=== PATIENT | female | born 1985 | race Hispanic/Latino ===

== ENCOUNTER 2019-02-03 21:38 | Inpatient (IN) | payer MEDICAID ==
[2019-02-03] MEDS ORDERED: Lorazepam 2 MG/ML VIAL ONE (21:51)
[2019-02-03 21:56] LABS: #Basophils 0.1 thou/uL (0.0-0.2); #Eosinphils 0.1 thou/uL (0.0-0.7); #Lymphocytes 3.1 thou/uL (1.20-3.40); #Monocytes 0.4 thou/uL (0.11-0.59); #Neutrophils 4.3 thou/uL (1.40-6.50); %Basophils 0.7 % (0.0-1.0); %Eosinophils 1.7 % (0.0-10.0); %Lymphocytes 38.6 % (21.0-51.0); %Monocytes 5.4 % (0.0-10.0); %Neutrophils 53.6 % (42.0-75.0); Hemoglobin 11.7 g/dL (12.0-16.0); Mean Corpuscular HGB CONC 33.7 g/dL (32.0-36.0); Mean Corpuscular Hemoglobin 30.4 pg (27.0-31.0); Mean Corpuscular Volume 90.2 fL (78.0-98.0); Mean Platelet Volume 8.3 fL (7.4-10.4); Platelet Count 259 thou/uL (130-400); RBC Distribution Width 12.5 % (11.5-14.5); Red Blood Cell (RBC) Count 3.84 mill/uL (4.20-5.40)
--- NOTE | 2019-02-03 21:59 | RAD ---
Portable chest: HISTORY: Postintubation COMPARISON: 08/14/2015 FINDINGS: Lung crain are clear. Heart and mediastinum appear unremarkable. Vascularity is normal. Visualized osseous structures unremarkable. ET tube and NG tube appear adequately positioned. IMPRESSION: No acute finding
[2019-02-03 22:03] LABS: BHCG - Serum Negative (NEGATIVE); Pregs Control Background? CLEAR/WHITE (CLR/WHITE); Pregs Control Bar Appear? YES (CONTROL BAR)
[2019-02-03 22:21] LABS: Bilirubin Negative (Negative); Blood, Urine Negative (Negative); Clarity Clear (Clear); Glucose, Urine (Dipstick) Normal (Negative); Leukocyte Negative Leu/uL (Negative); Nitrite Negative (Negative); Protein, Urine (Dipstick) Negative (Neg-Trace); Urobilinogen Normal mg/dL (Less than 2)
[2019-02-03 22:21] LABS: ALT (SGPT) 12 U/L (8-55); AST (SGOT) 14 U/L (5-34); Acetaminophen Less than 6.0 mcg/mL (10.0-30.0); Albumin 3.2 g/dL (3.5-5.0); Alcohol 249 mg/dL (Less than 10); Alkaline Phosphatase 74 U/L (40-110); Anion Gap 12 mmol/L (10-20); BUN (Urea Nitrogen) 4 mg/dL (7.0-18.7); Bilirubin, Total Less than 0.2 mg/dL (0.2-1.2); CK (CPK) 53 U/L (29-168); Calc. Creatinine Clearance 0 mL/min (70-130); Calcium 7.5 mg/dL (7.8-10.44); Carbon Dioxide 19 mmol/L (22-29); Chloride 113 mmol/L (98-107); Estimated GFR-MDRD Greater than 90; Globulin 2.3 g/dL (2.4-3.5); Glucose 147 mg/dL (70-105); Potassium 3.3 mmol/L (3.5-5.1); Protein, Total 5.5 g/dL (6.0-8.3); Salicylate Less than 8.0 mg/dL (15.0-30.0); Sodium 141 mmol/L (136-145)
[2019-02-03 22:25] LABS: Actual Bicarbonate (HCO3a) 16.2 mEq/L (22-28); Analyzer IN Cardio ER; CO2 Tension 26.1 mmHg (35.0-45.0); Calcium, Ionized 1.09 mmol/L (1.12-1.30); Carboxyhemoglobin (COHb) 5.6 gm% (0.0-3.0); Hemoglobin (Hb) 11.3 g/dL (12.0-16.0); O2 Tension (PaO2) 68.3 mmHg (80.0-100.0); Potassium - ABG Lab 3.31 mmol/L (3.70-5.30); pH, Arterial 7.41 (7.35-7.45)
[2019-02-03 22:29] LABS: Medtox Reader # READER 4
[2019-02-03 22:30] LABS: Amphetamine Not Detected (NotDetected); Barbiturates Screen Not Detected (NotDetected); Benzodiazepine Screen Not Detected (NotDetected); Cocaine Metabolite Screen Not Detected (NotDetected); Medtox Control Line Valid? VALID (VALID); Methadone Not Detected (NotDetected); Methamphetamine Not Detected (NotDetected); Opiate Screen Not Detected (NotDetected); Oxycodone Screen Not Detected (NotDetected); Phencyclidine (PCP) Not Detected (NotDetected); THC/Cannabinoid Screen Not Detected (NotDetected); Tricyclic Screen Detected (NotDetected)
[2019-02-03 22:46] LABS: Puncture Site RRA
[2019-02-03 22:47] LABS: ALV-art Gradient 184.275 (0-20)
[2019-02-03] MEDS ORDERED: Magnesium 2 GM/50 ML BAG (IN WATER) ONE (22:49)
[2019-02-03] MEDS ORDERED: NS 0.9% w/ 40 MEQ KCL 1,000 ML IV SCH (23:00)
[2019-02-04] MEDS ORDERED: Ondansetron ODT 4 MG TAB PO PRN (00:06)
[2019-02-04] MEDS ORDERED: Ondansetron PF 4 MG/2 ML Vial IVP PRN (00:06)
[2019-02-04] MEDS ORDERED: Ventilator Sedation Protocol 1 EACH FS ONE (00:24)
[2019-02-04] MEDS ORDERED: Propofol 1,000 MG/100 ML VIAL IV PRN (00:25)
[2019-02-04] MEDS ORDERED: fentaNYL Citrate/PF 2,000 MCG in Sodium Chloride 0.9% 60 ML IV SCH (00:25)
[2019-02-04] MEDS ORDERED: Morphine 2 MG/ML SYRINGE SLOW IVP PRN (00:25)
[2019-02-04] MEDS ORDERED: Fentanyl BOLUS 250 ML IVPB PRN (00:25)
[2019-02-04] MEDS ORDERED: Propofol BOLUS 1,000 MG/100 ML VIAL IV PRN (00:25)
[2019-02-04] MEDS ORDERED: Lorazepam 2 MG/ML VIAL SLOW IVP PRN (00:25)
[2019-02-04] MEDS ORDERED: DISCONTINUE PREVIOUS NARCOTIC PAIN MEDICATIONS AND BENZODIAZEPINES FS SCH (00:25)
[2019-02-04 02:06] LABS: Acetaminophen Less than 6.0 mcg/mL (10.0-30.0)
[2019-02-04 02:59] LABS: Anion Gap 12 mmol/L (10-20); BUN (Urea Nitrogen) 4 mg/dL (7.0-18.7); Calc. Creatinine Clearance 180 mL/min (70-130); Calcium 7.8 mg/dL (7.8-10.44); Carbon Dioxide 21 mmol/L (22-29); Chloride 112 mmol/L (98-107); Estimated GFR-MDRD Greater than 90; Glucose 147 mg/dL (70-105); Potassium 3.4 mmol/L (3.5-5.1); Salicylate Less than 8.0 mg/dL (15.0-30.0); Sodium 142 mmol/L (136-145)
[2019-02-04] MEDS ORDERED: Sodium Chloride 0.9% 1,000 ML IV SCH (04:30)
[2019-02-04 05:37] LABS: #Eosinphils 0.1 thou/uL (0.0-0.7); #Lymphocytes 3.6 thou/uL (1.20-3.40); #Monocytes 0.8 thou/uL (0.11-0.59); %Basophils 0.3 % (0.0-1.0); %Eosinophils 0.8 % (0.0-10.0); %Lymphocytes 24.9 % (21.0-51.0); %Monocytes 5.4 % (0.0-10.0); %Neutrophils 68.5 % (42.0-75.0); Hemoglobin 12.1 g/dL (12.0-16.0); Mean Corpuscular HGB CONC 33.1 g/dL (32.0-36.0); Mean Corpuscular Hemoglobin 29.8 pg (27.0-31.0); Mean Platelet Volume 8.6 fL (7.4-10.4); Platelet Count 275 thou/uL (130-400); RBC Distribution Width 12.6 % (11.5-14.5); Red Blood Cell (RBC) Count 4.07 mill/uL (4.20-5.40); White Blood Cell (WBC) Count 14.6 thou/uL (4.8-10.8)
--- NOTE | 2019-02-04 06:22 | HP ---
PRIMARY CARE DOCTOR: The patient has no PCP. CODE STATUS: Full code. TIME OF EVALUATION: 12 a.m. CHIEF COMPLAINT: Patient on an overdose for suicidal attempt. HISTORY OF PRESENT ILLNESS: This is a 34-year-old female patient, we are unable to obtain family history. The patient was brought into the hospital by EMS. The patient had a suicidal attempt. The patient had overdosed on several medications that she got from her home medications and that include prazosin, hydroxyzine, quetiapine, venlafaxine, benztropine, unclear the amount that the patient ingested and also EMS has reported that she had a vomit with multiple pills when she was being evaluated. The patient became unresponsive, unable to protect the airway, got intubated and is going to be monitored in ICU for that reason. Psych will need to see the patient once the patient is alert. Symptoms were present since presentation after the EMS called. The patient is over-sedated. Symptoms are severe, triggered by overdose. No alleviating factors at the time of medical treatment. REVIEW OF SYSTEMS: Unable to obtain, the patient is over-sedated. PAST MEDICAL HISTORY: Unable to obtain since the patient is intubated and over-sedated due to the overdose. PAST SURGICAL HISTORY: Unable to obtain since the patient is intubated and over-sedated due to the overdose. PAST PSYCHIATRIC HISTORY: Unable to obtain since the patient is intubated and over-sedated due to the overdose. FAMILY HISTORY: Unable to obtain since the patient is intubated and over-sedated due to the overdose. SOCIAL HISTORY: Unable to obtain since the patient is intubated and over-sedated due to the overdose. KNOWN ALLERGIES: Unable to obtain and verify. REPORTED MEDICATIONS: 1. Hydroxyzine. 2. Benztropine. 3. Venlafaxine. 4. Prazosin. 5. Quetiapine. IMAGING STUDIES: EKG was reviewed. The patient has sinus tachycardia at the rate of [address]-T wave abnormalities. QT corrected is 149. The second one was reviewed, the QT corrected was 476. Third one shows the same with tachycardia at 116, and QT corrected 489. Chest x-ray was reviewed. The patient has no acute findings. LABORATORY DATA: Reviewed. The patient has a white count 8.0, hemoglobin 11.7, platelet count 259. Blood gas; the patient has a pH 7.41, pCO2 of 26.1, and pO2 of 68.3. SIMV; respiratory rate 22, inspired oxygen 40, tidal volume 450, pressure support of 10. Chemistry; the patient presented with sodium 141, chloride 113, carbon dioxide 19, anion gap 12, creatinine 0.5, glucose 147, calcium 7.5, magnesium 1.9, total bilirubin less than 0.2. LFTs were negative. Toxicology and tricyclics were detected. The rest was negative. Tylenol was negative. Plasma alcohol 249. PHYSICAL EXAMINATION: VITAL SIGNS: On presentation, heart rate 128, respiratory rate was 22, oxygen saturation was 100% on the vent. GENERAL APPEARANCE: The patient is over-sedated, intubated. HEENT: Eyes, normal conjunctivae. Moist oral mucosa. Anicteric. No JVD. The patient has pinpoint pupils. RESPIRATORY: Bilateral air entry. No rales. No wheezes. Symmetric expansion. CARDIOVASCULAR: The patient has tachycardia. Regular rhythm. No murmurs. No gallop. No edema. ABDOMEN: Soft. Normal bowel sounds. MUSCULOSKELETAL: Baseline range of motion and strength. SKIN: Warm, intact. No pallor. No rash. No redness. Capillary refill seems to be intact. NEUROLOGIC: No evidence of any new focal weakness. At this point, the patient is oversedated and is very difficult to examine. PSYCH: Not examined due to patient intubated. ASSESSMENT AND PLAN: The patient will be placed in the hospital with following medical problems. 1. Acute encephalopathy secondary to overdose of multiple medications as a suicidal attempt. The patient got severe central nervous system depression, got intubated for airway protection. We will continue to monitor in ICU. We will give hydration. The patient will need assessment by Psych once more stable. 2. The patient seems to have a history of psych disease. This will need to be monitored and as soon as the patient's mentation is better, reconciliation of home medication needs to be done since the patient might want withdrawal of this medications once overdose is gone. 3. Alcohol intoxication. The patient will need to be advised to stop drinking. 4. Deep venous thrombosis prophylaxis. Job ID: [id number]
[2019-02-04 08:22] LABS: Actual Bicarbonate (HCO3a) 18.9 mEq/L (22-28); Base Excess (BEa) -5.1 mEq/L (-2.0 to +3.0); CO2 Tension 32.3 mmHg (35.0-45.0); Calcium, Ionized 1.15 mmol/L (1.12-1.30); Carboxyhemoglobin (COHb) 0.7 gm% (0.0-3.0); Hemoglobin (Hb) 12.4 g/dL (12.0-16.0); O2 Tension (PaO2) 129.3 mmHg (80.0-100.0); Potassium - ABG Lab 3.76 mmol/L (3.70-5.30); pH, Arterial 7.39 (7.35-7.45)
[2019-02-04 08:23] LABS: ALV-art Gradient 44.225 (0-20); Puncture Site RRA
[2019-02-04] MEDS: Enoxaparin Sodium 40 MG/0.4 ML SYRINGE SC SCH (09:00)
[2019-02-04] MEDS: Famotidine/PF 20 mg/2ml Vial SLOW IVP SCH ×2 (09:00→21:01)
[2019-02-04] MEDS: Lactated Ringer's 1,000 ML IV SCH ×3 (14:26→23:17)
--- NOTE | 2019-02-04 19:36 | CON ---
DATE OF CONSULTATION: 02/04/2019 HISTORY OF PRESENT ILLNESS: Ms. Abernathy is 34-year-old female, who took multiple prescription drugs. She was admitted to the critical care unit after being intubated. When I saw her this morning, she was awake and following commands. Medical records have been reviewed and she has never been hospitalized here before. She has no past medical history. FAMILY HISTORY: Unknown. SOCIAL HISTORY: Unknown. REVIEW OF SYSTEMS: Not obtainable. PHYSICAL EXAMINATION: GENERAL: She is intubated. She moved all extremities. VITAL SIGNS: She is afebrile. Heart rate is in the 90s, she is in sinus rhythm. Respiratory rate is in the teens, oximetry is 100%. Blood pressure is in the 120s to 130s. HEAD AND NECK: Unremarkable. LUNGS: Clear. HEART: Regular rhythm. S1 and S2 are normal. ABDOMEN: Soft and nontender. EXTREMITIES: Without clubbing, cyanosis, or edema. LABORATORY DATA: Drug screen was positive for tricyclics. Alcohol was 249. White count 14.6, hemoglobin 12.1, platelets 275. Electrolytes are unremarkable except for mild hyperchloremic acidosis. IMPRESSION: Alcohol intoxication with multiple drug ingestion, now awake. I felt she was a candidate for extubation. She met criteria for weaning and extubation was done successfully. She is to be observed several hours and if she is stable, move her out of the critical care unit to a medical bed. Critical care time is 35 minutes. Job ID: [id number] MTDD
[2019-02-05 05:43] LABS: #Eosinphils 0.2 thou/uL (0.0-0.7); #Monocytes 0.6 thou/uL (0.11-0.59); #Neutrophils 10.1 thou/uL (1.40-6.50); %Basophils 0.3 % (0.0-1.0); %Eosinophils 1.5 % (0.0-10.0); %Lymphocytes 21.7 % (21.0-51.0); %Monocytes 4.2 % (0.0-10.0); %Neutrophils 72.3 % (42.0-75.0); Hemoglobin 11.9 g/dL (12.0-16.0); Mean Corpuscular HGB CONC 33.6 g/dL (32.0-36.0); Mean Corpuscular Hemoglobin 29.9 pg (27.0-31.0); Mean Corpuscular Volume 88.9 fL (78.0-98.0); Mean Platelet Volume 8.9 fL (7.4-10.4); Platelet Count 281 thou/uL (130-400); RBC Distribution Width 12.4 % (11.5-14.5); Red Blood Cell (RBC) Count 3.99 mill/uL (4.20-5.40)
[2019-02-05 06:03] LABS: ALT (SGPT) 11 U/L (8-55); AST (SGOT) 8 U/L (5-34); Albumin 3.3 g/dL (3.5-5.0); Alkaline Phosphatase 90 U/L (40-110); Anion Gap 10 mmol/L (10-20); BUN (Urea Nitrogen) 5 mg/dL (7.0-18.7); Bilirubin, Total 0.7 mg/dL (0.2-1.2); Calc. Creatinine Clearance 183 mL/min (70-130); Calcium 8.7 mg/dL (7.8-10.44); Carbon Dioxide 24 mmol/L (22-29); Chloride 108 mmol/L (98-107); Estimated GFR-MDRD Greater than 90; Globulin 2.6 g/dL (2.4-3.5); Glucose 96 mg/dL (70-105); Potassium 3.8 mmol/L (3.5-5.1); Protein, Total 5.9 g/dL (6.0-8.3); Sodium 138 mmol/L (136-145)
[2019-02-05] MEDS: Famotidine/PF 20 mg/2ml Vial SLOW IVP SCH ×2 (10:05→20:22)
[2019-02-05] MEDS: Enoxaparin Sodium 40 MG/0.4 ML SYRINGE SC SCH (10:06)
[2019-02-05] MEDS: Lactated Ringer's 1,000 ML IV SCH (10:07)
--- NOTE | 2019-02-05 12:30 | PDOC.HOSPP ---
- Subjective Encounter Date: 02/05/19 Encounter Time: 09:53 Subjective: Admitted after suicide attempt by intentional overdose on several medications associated with acute toxic encephalopathy with [employer] depression requiring intubation for airway protection. Extubated with improvement of mental status. No new problem. Denied fever, nausea and vomiting. - Objective Vital Signs & Weight: Vital Signs (12 hours) Temp Pulse Resp BP Pulse Ox 02/05/19 11:50 99.2 F 110 H 18 137/77 97 02/05/19 07:45 98.4 F 106 H 16 143/73 H 96 02/05/19 03:14 99 F 100 16 123/80 92 L Weight Admit Weight 2.967 oz Weight 175 lb 14.4 oz Most Recent Monitor Data Heart Rate from ECG 103 NIBP 122/78 NIBP BP-Mean 92 Respiration from ECG 15 SpO2 100 I&O: 02/04/19 02/05/19 02/06/19 06:59 06:59 06:59 Intake Total 932 2484 Output Total 635 2625 Balance 297 -141 Result Diagrams: 02/05/19 05:12 02/05/19 05:12 Additional Labs: Accuchecks 02/04/19 16:53 POC Glucose 104 Hospitalist ROS - Medication Medications: Active Medications Generic Name Dose Route Start Last Admin Trade Name Freq PRN Reason Stop Dose Admin Enoxaparin Sodium 40 mg 02/04/19 09:00 02/05/19 10:06 Lovenox SC 40 mg 0900 CARY Administration Famotidine 20 mg 02/04/19 09:00 02/05/19 10:05 Pepcid SLOW IVP 20 mg BID CARY Administration Sodium Chloride 10 ml 02/04/19 09:00 02/05/19 10:06 Flush - Normal Saline IVF 10 ml Q12HR CARY Administration - Exam General Appearance: awake alert Eye: anicteric sclera ENT: normocephalic atraumatic Neck: symmetric, no JVD Heart: RRR Respiratory: no wheezes, no rales, no ronchi, normal chest expansion Respiratory - other findings: fair air entry with few transmitted sound Gastrointestinal: soft, non-tender, non-distended, normal bowel sounds Extremities: no edema Neurological: cranial nerve grossly intact, no focal deficits Psychiatric: A&O x 3, flat affect Hosp A/P (1) Toxic metabolic encephalopathy Code(s): G92 - TOXIC ENCEPHALOPATHY Status: Acute (2) Suicide attempt Status: Acute (3) Intentional overdose of drug in tablet form Code(s): T50.902A - POISONING BY UNSP DRUG/MEDS/BIOL SUBST, SELF-HARM, INIT Status: Acute (4) Respiratory failure requiring intubation Code(s): J96.90 - RESPIRATORY FAILURE, UNSP, UNSP W HYPOXIA OR HYPERCAPNIA Status: Acute (5) Metabolic acidosis Code(s): E87.2 - ACIDOSIS Status: Acute (6) Depression Code(s): F32.9 - MAJOR DEPRESSIVE DISORDER, SINGLE EPISODE, UNSPECIFIED Status : Acute - Plan [place] oral intake. DC IVF Antiemetic as needed Consult [facility] Suicide precaution to continue.
[2019-02-05] MEDS: Acetaminophen 325 MG TAB PO PRN (21:03)
[2019-02-06] MEDS: Famotidine/PF 20 mg/2ml Vial SLOW IVP SCH ×2 (08:37→21:24)
[2019-02-06] MEDS: Enoxaparin Sodium 40 MG/0.4 ML SYRINGE SC SCH (08:38)
--- NOTE | 2019-02-06 11:26 | PDOC.HOSPP ---
- Subjective Encounter Date: 02/06/19 Encounter Time: 11:20 Subjective: f/u after SI, intentional OD initially requiring [facility] ventilation for airway protection. UDS with Tricyclics and ETOH. Awaiting bed opening at [facility]. - Objective Vital Signs & Weight: Vital Signs (12 hours) Temp Pulse Resp BP Pulse Ox 02/06/19 07:12 98.6 F 85 18 117/71 96 02/06/19 04:00 98.3 F 87 18 112/67 95 Weight Admit Weight 2.967 oz Weight 175 lb 14.4 oz Most Recent Monitor Data Heart Rate from ECG 103 NIBP 122/78 NIBP BP-Mean 92 Respiration from ECG 15 SpO2 100 I&O: 02/05/19 02/06/19 02/07/19 06:59 06:59 06:59 Intake Total 2484 2312 Output Total 2625 2400 Balance -141 -88 Result Diagrams: 02/05/19 05:12 02/05/19 05:12 Additional Labs: Laboratory Tests 02/03/19 02/03/19 02/04/19 21:41 21:47 01:37 Potassium 3.4 L Ur Tricyclics Screen Detected H Plasma Alcohol 249 H EKG Reviewed by me: Yes (Tele - sinus tach in low 100's) Hospitalist ROS - Medication Medications: Active Medications Generic Name Dose Route Start Last Admin Trade Name Freq PRN Reason Stop Dose Admin Acetaminophen 650 mg 02/05/19 20:53 02/05/19 21:03 Tylenol PO 650 mg Q4H PRN Administration Headache Enoxaparin Sodium 40 mg 02/04/19 09:00 02/06/19 08:38 Lovenox SC 40 mg 0900 CARY Administration Famotidine 20 mg 02/04/19 09:00 02/06/19 08:37 Pepcid SLOW IVP 20 mg BID CARY Administration Sodium Chloride 10 ml 02/04/19 09:00 02/06/19 08:38 Flush - Normal Saline IVF 10 ml Q12HR CARY Administration - Exam General Appearance: NAD Eye: PERRL, anicteric sclera ENT: normocephalic atraumatic, no oropharyngeal lesions Neck: supple, symmetric, no JVD, no thyromegaly, no lymphadenopathy Heart: no murmur, no gallops, no rubs, normal peripheral pulses Heart - other findings: tachycardia Respiratory: CTAB, no wheezes, no rales, no ronchi Gastrointestinal: soft, non-tender, non-distended, normal bowel sounds, no palpable masses Extremities: no cyanosis, no clubbing, no edema Skin: normal turgor, no lesions, no rashes Neurological: cranial nerve grossly intact, no new deficit Musculoskeletal: normal tone, normal strength, no muscle wasting Psychiatric: A&O x 3 Hosp A/P (1) Suicide attempt Status: Acute Plan: s/p intentional OD with ETOH intoxication, [facility] recommending admission to [facility] but pt asking for outpt options, continue 1:1 for observing (2) Toxic metabolic encephalopathy Code(s): G92 - TOXIC ENCEPHALOPATHY Status: Acute Plan: Secondary to #3, improved and resolving (3) Intentional overdose of drug in tablet form Code(s): T50.902A - POISONING BY UNSP DRUG/MEDS/BIOL SUBST, SELF-HARM, INIT Status: Acute Plan: See above (4) Depression Code(s): F32.9 - MAJOR DEPRESSIVE DISORDER, SINGLE EPISODE, UNSPECIFIED Status : Chronic Plan: Continue inpt psychiatric evaluation once transferred to [facility] (5) Metabolic acidosis Code(s): E87.2 - ACIDOSIS Status: Acute Plan: Resolved - Plan forensic social worker, DVT proph w/SCDs Stable currently Continue sitter for 1:1 [facility] re-evaluation for potential outpt options Resume home meds OOB/ambulate
[2019-02-06] MEDS: Acetaminophen 325 MG TAB PO PRN (12:11)
[2019-02-06] MEDS ORDERED: Benztropine 1 MG TAB PO SCH (21:00)
[2019-02-07 08:33] VITALS: BMI 32.2
[2019-02-07] MEDS: Enoxaparin Sodium 40 MG/0.4 ML SYRINGE SC SCH (08:34)
[2019-02-07] MEDS: Famotidine/PF 20 mg/2ml Vial SLOW IVP SCH (08:34)
[2019-02-07] MEDS ORDERED: Venlafaxine HCl XR 75 MG CAP PO SCH (09:00)
[2019-02-07] MEDS ORDERED: Fentanyl 100 MCG/2 ML VIAL ONE (09:12)
[2019-02-07 12:30] VITALS: BP 130/67; TEMP 98.6
--- NOTE | 2019-02-07 17:04 | EKG ---
Test Reason : AMS Blood Pressure : / mmHG Vent. Rate : 133 BPM Atrial Rate : 133 BPM P-R Int : 146 ms QRS Dur : 070 ms QT Int : 302 ms P-R-T Axes : 052 023 054 degrees QTc Int : [address] abnormality Abnormal ECG Confirmed by RAJWINDER ESTRELLA DO ([id number]), supervising editor news reel CHRISTIAN POWELL ([id number]) on 02/07/2019 5:04:07 PM Referred By: Confirmed By:RAJWINDER ESTRELLA DO
--- NOTE | 2019-02-07 17:04 | EKG ---
Test Reason : Blood Pressure : / mmHG Vent. Rate : 116 BPM Atrial Rate : 116 BPM P-R Int : 162 ms QRS Dur : 074 ms QT Int : 352 ms P-R-T Axes : 044 022 034 degrees QTc Int : 489 ms Sinus tachycardia Otherwise normal ECG Confirmed by RAJWINDER ESTRELLA DO ([id number]), film and video editor CHRISTIAN POWELL ([id number]) on 02/07/2019 5:04:34 PM Referred By: Confirmed By:RAJWINDER ESTRELLA DO
--- NOTE | 2019-02-07 17:04 | EKG ---
Test Reason : Blood Pressure : / mmHG Vent. Rate : 118 BPM Atrial Rate : 118 BPM P-R Int : 164 ms QRS Dur : 068 ms QT Int : 340 ms P-R-T Axes : 039 019 015 degrees QTc Int : 476 ms Sinus tachycardia Cannot rule out Anterior infarct , age undetermined Abnormal ECG Confirmed by RAJWINDER ESTRELLA DO ([id number]), editor farm [employer] CHRISTIAN POWELL ([id number]) on 02/07/2019 5:04:39 PM Referred By: Confirmed By:RAJWINDER ESTRELLA DO
--- NOTE | 2019-02-08 01:02 | DIS ---
DATE OF ADMISSION: 02/04/2019 DATE OF DISCHARGE: 02/07/2019 DISCHARGE DIAGNOSES: 1. Suicide attempt with intentional overdose of medication. 2. Toxic metabolic encephalopathy secondary to #1, resolved. 3. Depression. 4. Metabolic acidosis, resolved. CONSULTATIONS: 1. [facility] Service. 2. Dr. Talley with Pulmonology Critical Care Service. PERTINENT LABORATORY AND X-RAY FINDINGS: Potassium ranged between 3.3 to 3.8, carbon dioxide level ranged between 19 to 24. Serum beta-hCG negative on 02/03/2019. CBC showed a white blood cell count ranging between 8.0 to 14.6, hemoglobin ranged between 11.7 to 12.1. Urine drug screen dated 02/03/2019, positive for tricyclics with plasma alcohol level of 249. Portable chest x-ray dated 02/03/2019, showed no acute process. HOSPITAL COURSE: The patient was initially admitted to the Critical Care Unit after presenting status post intentional overdose of multiple medications to include prazosin, hydroxyzine, Seroquel, Effexor, and benztropine. Urine drug screen was positive for tricyclics and plasma alcohol level was noted at 249. Due to the patient's somnolence, the patient was intubated and placed on mechanical ventilation in the intensive care unit for approximately 48 hours. The patient transitioned out of the Critical Care Unit after successful extubation and was monitored on the telemetry unit without further clinical decompensation. The patient medically stabilized with general supportive management and was evaluated by the [facility] Service. The patient was deemed an appropriate candidate for inpatient psychiatric care due to ongoing delusions and auditory hallucinations with intent on suicide. The patient has been accepted to [facility] in [place], [place] for ongoing inpatient psychiatric care. I have examined and discussed disposition with the patient at the time of discharge. The patient is medically stable and ready for discharge on 02/07/2019. DISCHARGE MEDICATIONS: 1. Benztropine 0.5 mg p.o. at bedtime. 2. Hydroxyzine 25 mg p.o. daily. 3. Prazosin 1 mg p.o. at bedtime. 4. Seroquel 25 mg p.o. at bedtime. 5. Effexor extended release 75 mg p.o. daily. FOLLOWUP: The patient may follow up with [facility] in [facility] inpatient psychiatric unit on 02/07/2019. CONDITION ON DISCHARGE: Stable. ACTIVITY: Ad-violetta. DIET: Regular. CODE STATUS: Full. DISPOSITION: Transfer to inpatient psychiatric unit at [facility] in [place], [place] on 02/07/2019. TIME SPENT: Total time preparing and coordinating discharge is 35 minutes. Job ID: [id number]
--- NOTE | 2019-02-08 04:01 | PQF ---
SAP Kennel Keeper Crystal Reports Winform Viewer GREY DRUMMOND ABDIER [id number] CLINICAL DOCUMENTATION CLARIFICATION FORM: POST DISCHARGE Addendum to original discharge summary date: ____ Late entry note date: __ DATE: 02/08/19 ATTN: Juventino Daily Please exercise your independent, professional judgment in responding to the clarification form. Clinical indicators are provided on the bottom of this form for your review Can you please further specify if Acute Respiratory Failure is ruled in or ruled out? Acute Respiratory Failure [ x ] Ruled in diagnosis [ ] Continue to treat [ x ] Resolved [ ] Ruled out diagnosis [ ] Cannot rule out diagnosis [ ] Other diagnosis please specify [ ] Unable to determine In addition, please specify: Present on Admission (POA): [ x ] Yes [ ] No [ ] Unable to determine For continuity of documentation, please document condition throughout progress notes and discharge summary. Thank You. CLINICAL INDICATORS - SIGNS / SYMPTOMS / LABS H and P 02/04 pg.1- Patient on an overdose for suicidal attempt H and P 02/04 pg.1- The patient become unresponsive, unable to protect airway, got intubated nad going to monitor in ICU H and P pg.2 02/04- Got intubated fo airway protection Hospitalist PN 02/05 Dr. Pantoja pg.3- Respiratory failure requiring intubation, status: Acute Laboratory- Blood gas: ABG O2 93.5L ABG PO2 68.3L, ABG pCO2- 26.1L RISK FACTORS Acute encephalopathy secondary to drug overdose- H and P pg.2 Alcohol Intoxication- Consult Dr. Talley pg.1 TREATMENTS Intubation- H and P IV Fluids- Pulmonary Consult- Dr. Talley 02/04 ABG monitoring- Laboratory Admit to ICU HP 02/04 Ventilation HP 02/04 (This form is maintained as a part of the permanent medical record) 2014 [employer]. All Rights Reserved [email or web address] [not provided] MTDD
== END 2019-02-07 13:23 | DRG 917 ==
LOC: ERS 21:38 → EDBD 21:38 → CCU 02-04 01:05 → 2SE 02-04 13:30 → 2NO 02-04 20:49
PROVIDERS: ADMIT Hospitalist; ATTEND Hospitalist
PROC: 0BH17EZ Insertion of Endotracheal Airway into Trachea, Via Natural or Artificial Opening (ICD-10-PCS; principal; 2019-02-03)
PROC: 5A1945Z Respiratory Ventilation, 24-96 Consecutive Hours (ICD-10-PCS; 2019-02-03)
DX: T44.6X2A Poisoning by alpha-adrenoreceptor antagonists, intentional self-harm, initial encounter (principal); G92 Toxic encephalopathy; J96.00 Acute respiratory failure, unspecified whether with hypoxia or hypercapnia; E87.2 Acidosis; T43.592A Poisoning by other antipsychotics and neuroleptics, intentional self-harm, initial encounter; T43.212A Poisoning by selective serotonin and norepinephrine reuptake inhibitors, intentional self-harm, initial encounter; T42.8X2A Poisoning by antiparkinsonism drugs and other central muscle-tone depressants, intentional self-harm, initial encounter; F10.129 Alcohol abuse with intoxication, unspecified; Y90.8 Blood alcohol level of 240 mg/100 ml or more; E87.8 Other disorders of electrolyte and fluid balance, not elsewhere classified; F32.9 Major depressive disorder, single episode, unspecified; Y92.9 Unspecified place or not applicable; Z79.899 Other long term (current) drug therapy
CPT/HCPCS: 36415; 36416; 51702; 71045; 80048; 80053; 80306; 80307; 81003; 82550; 82805; 83735; 84484; 84703; 85025; 93005; 94002; 94003; 96361; 96365; 96367; 96375; 99292; J1650; J2060; J2704; J3010; J3475; J3480; S0028

== ENCOUNTER 2019-02-17 12:55 | Outpatient (CLI) | payer MEDICAID ==
--- NOTE | 2019-02-17 14:14 | MMO ---
Bilateral MAMMO Bilat Diag [facility]. CLINICAL HISTORY: Patient is 34 years old and is seen for diagnostic exam. The patient has no family history of breast cancer. The patient has no personal history of cancer. VIEWS: The views performed were: bilateral craniocaudal with tomosynthesis; bilateral mediolateral oblique with tomosynthesis; and bilateral mediolateral with tomosynthesis. FILMS COMPARED: The present examination has been compared to a prior imaging study performed at [facility] on 02/17/2019. This study has been interpreted with the assistance of computer-aided detection. MAMMOGRAM FINDINGS: There are scattered fibroglandular densities. Finding 1: There are stable benign appearing calcifications seen in both breasts. Finding 2: There are no mammographic or sonographic abnormalities in the area of palpable concern on the right. There are no mammographic abnormalities in the area of palpable concern on the left. A small lipoma is seen in this region sonographically. The patient is referred back to her clinician. Negative/benign imaging findings should not preclude biopsy if clinical findings are suspicious. There are no suspicious masses, suspicious calcifications, or areas of architectural distortion. IMPRESSION: THERE IS NO MAMMOGRAPHIC EVIDENCE OF MALIGNANCY. THE RESULTS OF THIS EXAM WERE SENT TO THE PATIENT. ACR BI-RADS Category 2 - Benign finding MAMMOGRAPHY NOTE: 1. A negative mammogram report should not delay a biopsy if a dominant of clinically suspicious mass is present. 2. Approximately 10% to 15% of breast cancers are not detected by mammography. 3. Adenosis and dense breasts may obscure an underlying neoplasm. Reported by: MARAL ODONNELL MD Electonically Signed: [id number]
--- NOTE | 2019-02-17 14:33 | ULT ---
BILATERAL LIMITED BREAST ULTRASOUND: Date: 02/17/19 PROVIDED CLINICAL HISTORY: Bilateral palpable abnormalities. FINDINGS: Limited sonographic interrogation was performed of the right breast at the 10 o'clock location in the region of reported palpable concern. The sonographic appearance of the breast tissue in this region is normal. Limited sonographic interrogation of the left breast was performed at the 12 o'clock position in the region of palpable concern. There is a circumscribed focus of increased echogenicity measuring about 1.0 cm in this location that may reflect a lipoma. No concerning sonographic findings are evident. IMPRESSION: No significant abnormalities are demonstrated. Negative/benign imaging findings should not preclude f urther evaluation of a clinically suspicious area. The patient is referred back to her clinician. BI-RADS Category 2 - Benign findings. POS: OFF
== END 2019-02-17 12:56 | disposition home or self-care (01) ==
LOC: BICMAMMO 12:55
PROVIDERS: ATTEND Nurse Practitioner Family
DX: N63.10 Unspecified lump in the right breast, unspecified quadrant (principal); N63.20 Unspecified lump in the left breast, unspecified quadrant
CPT/HCPCS: 77066; G0279